=== PATIENT | male | born 1960 | race Caucasian/White ===

== ENCOUNTER → 2016-12-31 | Outpatient (CLI) | payer OTHER ==
--- NOTE | 2016-12-31 08:26 | MR ---
EXAMINATION TYPE: MR knee RT wo con DATE OF EXAM: 12/31/2016 7:45 AM COMPARISON: NONE HISTORY: 56-year-old male with right knee pain TECHNIQUE: Multiplanar, multisequence imaging of the right knee is performed without IV contrast. FINDINGS: The ACL, PCL, and MCL are intact. There is suggestion of a small intrasubstance tear at the origin of the popliteus tendon, coronal image 21 with an adjacent lateral posterior 10 x 5 mm ganglion cyst. O therwise, LCL complex is intact. There is an oblique tear of the posterior horn and body of the medial meniscus. No displaced meniscal fragment. There is very mild superficial cartilage loss along the weightbearing aspect of the medial compartment. No high-grade cartilage lesion. Lateral meniscus is intact and lateral compartment articular cartilage is maintained. There is focal moderate to severe cartilage loss along the superior aspect of the medial patellar fac et with underlying subchondral cystic change. The area of cartilage injury measures 1.2 cm craniocaud al and 1.5 cm wide. Trochlear articular cartilage is maintained. Extensor mechanism is intact. Small knee joint effusion and small early Brantley's cyst. There is normal popliteal artery anatomy and muscle bulk. No suspicious bone marrow replacement. IMPRESSION: 1. Oblique tear of the posterior horn and body of the medial meniscus with mild degenerative cartilag e loss along the weightbearing aspect of the medial compartment. 2. Mild overall patellofemoral compartmental osteoarthrosis characterized by a 1.2 x 1.5 cm focal mod erate to severe area of cartilage loss along the superior aspect of the medial patellar facet. 3. Small intrasubstance tear at the origin of the popliteus tendon. Adjacent 1 cm ganglion cyst. Othe rwise, no cruciate/collateral ligament injury. 4. Small knee joint effusion and small Brantley's cyst.
== END | disposition home or self-care (01) ==
LOC: RADMRIMAIN 07:09
PROVIDERS: ATTEND Physician Assistant
DX: S83.241A Other tear of medial meniscus, current injury, right knee, initial encounter (principal); S86.811A Strain of other muscle(s) and tendon(s) at lower leg level, right leg, initial encounter; M17.11 Unilateral primary osteoarthritis, right knee; M94.8X6 Other specified disorders of cartilage, lower leg; M67.461 Ganglion, right knee; M71.21 Synovial cyst of popliteal space [Baker], right knee

== ENCOUNTER → 2017-01-16 | Outpatient (CLI) | payer OTHER | END | disposition home or self-care (01) | LOC: LABWHC1 07:15 | PROVIDERS: ATTEND Orthopaedic Surgery Sports Medicine | DX: Z01.818 Encounter for other preprocedural examination (principal); S83.241A Other tear of medial meniscus, current injury, right knee, initial encounter; Y99.9 Unspecified external cause status | CPT/HCPCS: 36415; 93005 ==

== ENCOUNTER 2017-10-02 11:33 | Day surgery (SDC) | payer OTHER ==
[2017-09-28 16:31] VITALS: BMI 33.9
[~2017-10-02 11:33] MED LIST: LACTATED RINGERS 1,000 ML IV SCH; LIDOCAINE 1% 20 ML VIAL (10MG/ML) FOR IV START INTRADERMA PRN
[2017-10-02 11:55] VITALS: TEMP 97.2
[2017-10-02] MEDS ORDERED: PROPOFOL 10 MG/ML 20 ML VIAL IV ONE (12:50)
--- NOTE | 2017-10-02 12:54 | P.GSHP ---
History of Present Illness H&P Date: 10/02/17 Chief Complaint: Screening colonoscopy This a 57-year-old male referred from Dr. Scarlet Vazquez. Patient presents today for screening colonoscopy. He's never had a previous colonoscopy. Past Medical History Past Medical History: Hypertension History of Any Multi-Drug Resistant Organisms: None Reported Past Surgical History: Orthopedic Surgery Additional Past Surgical History / Comment(s): GEETA KNEE ARTHROSCOPY Past Anesthesia/Blood Transfusion Reactions: No Reported Reaction Smoking Status: Former smoker - Past Family History Mother Family Medical History: Cancer Additional Family Medical History / Comment(s): BREAST Medications and Allergies Home Medications Medication Instructions Recorded Confirmed Type Lisinopril 40 mg PO DAILY 09/28/17 10/02/17 History Allergies Allergy/AdvReac Type Severity Reaction Status Date / Time Penicillins Allergy Rash/Hives Verified 10/02/17 11:56 Surgical - Exam Vital Signs Temp Pulse Resp BP Pulse Ox 97.2 F L 49 L 16 124/66 95 10/02/17 11:53 10/02/17 11:53 10/02/17 11:53 10/02/17 11:53 10/02/17 11:53 - General well developed, no distress - Eyes PERRL - ENT normal pinna - Neck no masses - Respiratory normal expansion - Cardiovascular Rhythm: regular - Abdomen Abdomen: soft, non tender Assessment and Plan Assessment: We'll perform screening colonoscopy.
--- NOTE | 2017-10-02 13:05 | P.OP ---
Date of Procedure: 10/02/17 Preoperative Diagnosis: Screening colonoscopy Postoperative Diagnosis: Normal colonoscopy Procedure(s) Performed: Colonoscopy Anesthesia: MAC Surgeon: Virgilio Meyers Pathology: none sent Condition: stable Disposition: PACU Description of Procedure: PROCEDURE: The patient was placed on the endoscopy table in the lateral position. Digital rectal examination was performed which revealed no abnormalities. The prostate was symmetrical without nodules. Flexible colonoscope was then placed in the patient's anus and passed throughout the entire colon. The ileocecal valve was visualized. The cecum, ascending, transverse, descending and sigmoid colon were normal. The rectum was normal as well. There were no masses, polyps or diverticula noted in the entire colon. SUMMARY OF FINDINGS: Normal colonoscopy.
[2017-10-02 13:32] VITALS: BP 119/68; PULSE 53; RESP 16
== END 2017-10-02 13:36 | disposition home or self-care (01) ==
LOC: ORWHC2ENDO 11:33
PROVIDERS: ATTEND Surgery
DX: Z12.11 Encounter for screening for malignant neoplasm of colon (principal); I10 Essential (primary) hypertension; Z88.0 Allergy status to penicillin; Z79.899 Other long term (current) drug therapy; Z87.891 Personal history of nicotine dependence; Z80.3 Family history of malignant neoplasm of breast
CPT/HCPCS: G0121; J2704

== ENCOUNTER 2022-09-26 00:42 | Emergency (ER) | payer OTHER ==
[2022-09-26 00:54] VITALS: TEMP 98.3
--- NOTE | 2022-09-26 01:16 | ED ---
General Adult HPI - General Chief complaint: Upper Respiratory Infection Stated complaint: Cough Time Seen by Provider: 09/26/22 00:55 Source: patient, RN notes reviewed Mode of arrival: ambulatory - History of Present Illness Initial comments: 62-year-old male presents to the emergency department for evaluation of strong congested cough and intermittent nosebleeds for the past 4 days. Complains of mild shortness of breath with activity. States cough is occasionally product conor. Reports fever first 2 days of illness, but none since. Did take Mucinex with no improvement. No known sick contacts. Denies headache, dizziness, chest pain, abdominal pain, nausea, vomiting, diarrhea, or dysuria. - Related Data Home Medications Medication Instructions Recorded Confirmed lisinopriL 40 mg PO DAILY 09/28/17 10/02/17 Previous Rx's Medication Instructions Recorded Azithromycin [Zithromax] 250 mg PO DAILY 4 Days #4 tab 09/26/22 Benzonatate [Tessalon Perles] 100 mg PO TID PRN #12 capsule 09/26/22 Allergies Allergy/AdvReac Type Severity Reaction Status Date / Time Penicillins Allergy Rash/Hives Verified 09/26/22 00:54 Review of Systems ROS Statement: Those systems with pertinent positive or pertinent negative responses have been documented in the HPI. ROS Other: All systems not noted in ROS Statement are negative. Past Medical History Past Medical History: Hypertension History of Any Multi-Drug Resistant Organisms: None Reported Past Surgical History: Orthopedic Surgery Additional Past Surgical History / Comment(s): GEETA KNEE ARTHROSCOPY Past Anesthesia/Blood Transfusion Reactions: No Reported Reaction Past Psychological History: No Psychological Hx Reported Smoking Status: Never smoker Past Alcohol Use History: None Reported Past Drug Use History: None Reported - Past Family History Mother Family Medical History: Cancer Additional Family Medical History / Comment(s): BREAST General Exam Limitations: no limitations General appearance: alert, in no apparent distress ENT exam: Present: normal oropharynx, mucous membranes moist, other (thick yellow drainage bilateral nares) Respiratory exam: Present: normal lung sounds bilaterally, other (strong nonproductive cough). Absent: respiratory distress, wheezes, rales, rhonchi, stridor Cardiovascular Exam: Present: regular rate, normal rhythm, normal heart sounds. Absent: systolic murmur, diastolic murmur, rubs, gallop, clicks Neurological exam: Present: alert, oriented X3, normal gait Psychiatric exam: Present: normal affect, normal mood Skin exam: Present: warm, dry, intact, normal color. Absent: rash Course Vital Signs 09/26/22 09/26/22 00:49 02:46 Temperature 98.3 F Pulse Rate 80 89 Respiratory 20 18 Rate Blood Pressure 138/71 131/76 O2 Sat by Pulse 95 95 Oximetry - Reevaluation(s) Reevaluation #1: 09/26/22 02:21 Upon exam, patient continues to be resting comfortably and in no acute distress. Does have strong cough. Discussed results and discharge plan of care. Patient verbalizes understanding and agrees with this plan. Medical Decision Making - Medical Decision Making This is a pleasant 62-year-old male with a four-day history of strong congested cough and fever early on in duration of illness. Upon exam, patient appears to be feeling poorly, but in no acute distress. No dyspnea, wheezing, or chest p ain. Laboratory studies were obtained showing mild leukocytosis (WBC 13.1); negative influenzas and Covid. Chest x-ray is unremarkable; no evidence of consolidation or infiltrate. Results were discussed with patient. Given age and elevated white blood cell count, patient will be started on Zithromax for acute bronchitis. Prescribed Tessalon Perles as cough has been disruptive to sleep. Encouraged to follow up with PCP for recheck by the end of the week. Return parameters discussed in detail. Patient verbalizes understanding and agrees with this plan. Attending: Elma. Was pt. sent in by a medical professional or institution? @ No Did you speak to anyone other than the patient for history? @ No Did you review nursing and triage notes? @ Yes, agree. Were old charts reviewed? @ No Differential Diagnosis? @ Upper respiratory infection, viral illness, bronchitis EKG interpreted by me (3pts min.)? @ Not applicable X-rays interpreted by me (1pt min.)? @ Yes, no evidence of acute changes. CT interpreted by me (1pt min.)? @ Not applicable U/S interpreted by me (1pt. min.)? @ Not Applicable What testing was considered but not performed? (CT, X-rays, U/S, labs)? Why? @ None What meds were considered but not given? Why? @ Considered albuterol, though patient does not have any wheezing therefore this was not given nor prescribed. Did you discuss the management of the patient with other professionals? @ No Did you reconcile home meds? @ No Was smoking cessation discussed for >3mins.? @ No Was critical care preformed (if so, how long)? @ No Were there social determinants of health that impacted care today? How? (Homelessness, low income, unemployed, alcoholism, drug addiction, transportation, low edu. Level, literacy, decrease access to med. care, halfway, rehab)? @ No Was there de-escalation of care discussed even if they declined? (Discuss DNR or withdrawal of care, Hospice)? @ No What co-morbidities impacted this encounter? (DM, HTN, Smoking, COPD, CAD, Cancer, CVA, Hep., AIDS, mental health diagnosis, sleep apnea, morbid obesity)? @ Hypertension Was patient admitted / discharged? @ Discharged Undiagnosed new problem with uncertain prognosis? @ No Drug Therapy requiring intensive monitoring for toxicity (Heparin, Nitro, Insulin, Cardizem)? @ No Were any procedures done? @ No Diagnosis/symptom? @ Bronchitis Acute, or Chronic, or Acute on Chronic? @ Acute Uncomplicated (without systemic symptoms) or Complicated (systemic symptoms)? @ Uncomplicated Side effects of treatment? @ None Exacerbation, Progression, or Severe Exacerbation] @ Not applicable Poses a threat to life or bodily function? @ No - Lab Data Result diagrams: 09/26/22 01:14 09/26/22 01:14 Lab Results 09/26/22 09/26/22 09/26/22 Range/Units 01:14 01:14 01:14 WBC 13.1 H (3.8-10.6) k/uL RBC 4.47 (4.30-5.90) m/uL Hgb 14.2 (13.0-17.5) gm/dL Hct 41.1 (39.0-53.0) % MCV 91.8 (80.0-100.0) fL MCH 31.8 (25.0-35.0) pg MCHC 34.6 (31.0-37.0) g/dL RDW 12.3 (11.5-15.5) % Plt Count 244 (150-450) k/uL MPV 9.0 Neutrophils % 76 % Lymphocytes % 13 % Monocytes % 7 % Eosinophils % 2 % Basophils % 1 % Neutrophils # 10.0 H (1.3-7.7) k/uL Lymphocytes # 1.7 (1.0-4.8) k/uL Monocytes # 0.9 (0-1.0) k/uL Eosinophils # 0.3 (0-0.7) k/uL Basophils # 0.1 (0-0.2) k/uL Sodium 138 (137-145) mmol/L Potassium 5.0 (3.5-5.1) mmol/L Chloride 106 (98-107) mmol/L Carbon Dioxide 23 (22-30) mmol/L Anion Gap 9 mmol/L BUN 13 (9-20) mg/dL Creatinine 0.96 (0.66-1.25) mg/dL Est GFR (CKD-EPI)AfAm >90 (>60 ml/min/1.73 sqM) Est GFR (CKD-EPI)NonAf 86 (>60 ml/min/1.73 sqM) Glucose 115 H (74-99) mg/dL Calcium 8.5 (8.4-10.2) mg/dL Total Bilirubin 1.4 H (0.2-1.3) mg/dL AST 45 (17-59) U/L ALT 20 (4-49) U/L Alkaline Phosphatase 108 (38-126) U/L Total Protein 7.2 (6.3-8.2) g/dL Albumin 4.3 (3.5-5.0) g/dL Coronavirus (PCR) (Not Detectd) Influenza Type A RNA Not Detected (Not Detectd) Influenza Type B (PCR) Not Detected (Not Detectd) 09/26/22 Range/Units 01:14 WBC (3.8-10.6) k/uL RBC (4.30-5.90) m/uL Hgb (13.0-17.5) gm/dL Hct (39.0-53.0) % MCV (80.0-100.0) fL MCH (25.0-35.0) pg MCHC (31.0-37.0) g/dL RDW (11.5-15.5) % Plt Count (150-450) k/uL MPV Neutrophils % % Lymphocytes % % Monocytes % % Eosinophils % % Basophils % % Neutrophils # (1.3-7.7) k/uL Lymphocytes # (1.0-4.8) k/uL Monocytes # (0-1.0) k/uL Eosinophils # (0-0.7) k/uL Basophils # (0-0.2) k/uL Sodium (137-145) mmol/L Potassium (3.5-5.1) mmol/L Chloride (98-107) mmol/L Carbon Dioxide (22-30) mmol/L Anion Gap mmol/L BUN (9-20) mg/dL Creatinine (0.66-1.25) mg/dL Est GFR (CKD-EPI)AfAm (>60 ml/min/1.73 sqM) Est GFR (CKD-EPI)NonAf (>60 ml/min/1.73 sqM) Glucose (74-99) mg/dL Calcium (8.4-10.2) mg/dL Total Bilirubin (0.2-1.3) mg/dL AST (17-59) U/L ALT (4-49) U/L Alkaline Phosphatase (38-126) U/L Total Protein (6.3-8.2) g/dL Albumin (3.5-5.0) g/dL Coronavirus (PCR) Not Detected (Not Detectd) Influenza Type A RNA (Not Detectd) Influenza Type B (PCR) (Not Detectd) - Radiology Data Radiology results: report reviewed, image reviewed Interpreted by me: Per my interpretation, chest x-ray shows no evidence of focal consolidation or infiltrate. Two-view chest x-ray is obtained. Report was reviewed in its entirety. Impression per Dr. Duong is normal chest. Disposition Clinical Impression: Acute bronchitis Disposition: HOME SELF-CARE Condition: Stable Instructions (If sedation given, give patient instructions): Acute Bronchitis (ED) Additional Instructions: Take antibiotic as prescribed. Begin on Monday as you were given first dose in the emergency department. Tessalon Perles are to be taken as needed for cough up to 3 times daily. Consider running a humidifier or vaporizer in the room in which you sleep. Follow-up with your PCP for a recheck in 48 hours. Return to the emergency department with any new, worsening, or concerning symptoms. Prescriptions: Benzonatate [Tessalon Perles] 100 mg PO TID PRN #12 capsule PRN Reason: Cough Azithromycin [Zithromax] 250 mg PO DAILY 4 Days #4 tab Is patient prescribed a controlled substance at d/c from ED?: No Referrals: Scarlet Vazquez DO [Primary Care Provider] - 1-2 days Time of Disposition: 02:38
[2022-09-26 01:21] LABS: Basophils # (A) 0.1 k/uL (0-0.2); Basophils % (A) 1 %; Eosinophils # (A) 0.3 k/uL (0-0.7); Eosinophils % (A) 2 %; HCT 41.1 % (39.0-53.0); HGB 14.2 gm/dL (13.0-17.5); Lymphocytes # (A) 1.7 k/uL (1.0-4.8); Lymphocytes % (A) 13 %; MCH 31.8 pg (25.0-35.0); MCHC 34.6 g/dL (31.0-37.0); MCV 91.8 fL (80.0-100.0); Monocytes # (A) 0.9 k/uL (0-1.0); Monocytes % (A) 7 %; Neutrophils % (A) 76 %; Platelet Count 244 k/uL (150-450); RBC 4.47 m/uL (4.30-5.90); RDW 12.3 % (11.5-15.5); WBC 13.1 k/uL (3.8-10.6)
[2022-09-26 01:35] LABS: ALT 20 U/L (4-49); AST 45 U/L (17-59); African American GFR (CKD) >90 (>60 ml/min/1.73 sqM); Albumin 4.3 g/dL (3.5-5.0); Alkaline Phosphatase 108 U/L (38-126); Anion Gap 9 mmol/L; Blood Urea Nitrogen 13 mg/dL (9-20); Calcium 8.5 mg/dL (8.4-10.2); Carbon Dioxide 23 mmol/L (22-30); Chloride 106 mmol/L (98-107); Glucose 115 mg/dL (74-99); Non-African American GFR(CKD) 86 (>60 ml/min/1.73 sqM); Sodium 138 mmol/L (137-145); Total Bilirubin 1.4 mg/dL (0.2-1.3); Total Protein 7.2 g/dL (6.3-8.2)
--- NOTE | 2022-09-26 01:46 | XR ---
EXAMINATION TYPE: XR chest 2V DATE OF EXAM: 09/26/2022 COMPARISON: NONE HISTORY: Cough TECHNIQUE: 2 views FINDINGS: Heart and mediastinum are normal. Lungs are clear. Diaphragm is normal. Bony thorax is inta ct. IMPRESSION: Normal chest.
[2022-09-26] MEDS ORDERED: BENZONATATE 100 MG CAP PO STA (02:33)
[2022-09-26] MEDS ORDERED: AZITHROMYCIN 500 MG TAB PO STA (02:33)
[2022-09-26 02:47] VITALS: BP 131/76; PULSE 89; RESP 18
== END 2022-09-26 02:47 | disposition home or self-care (01) ==
LOC: EC 00:42
DX: J20.9 Acute bronchitis, unspecified (principal); I10 Essential (primary) hypertension; Z88.0 Allergy status to penicillin; Z79.899 Other long term (current) drug therapy; Z20.822 Contact with and (suspected) exposure to COVID-19
CPT/HCPCS: 36415; 71046; 80053; 85025; 87502; 87635; 99283